=== PATIENT | female | born 1955 | race Caucasian/White ===

== ENCOUNTER → 2018-11-11 | Outpatient (CLI) | payer OTHER | END | disposition home or self-care (01) | LOC: CFH 09:38 | PROVIDERS: ATTEND Physician Assistant | DX: I31.3 Pericardial effusion (noninflammatory) (principal); I01.8 Other acute rheumatic heart disease; I50.30 Unspecified diastolic (congestive) heart failure; E78.5 Hyperlipidemia, unspecified; Z87.891 Personal history of nicotine dependence | CPT/HCPCS: 93306 ==

== ENCOUNTER → 2019-01-24 | Outpatient (CLI) | payer OTHER | END | disposition home or self-care (01) | LOC: CFH 09:16 | PROVIDERS: ATTEND Internal Medicine | DX: Z12.31 Encounter for screening mammogram for malignant neoplasm of breast (principal) | CPT/HCPCS: 77063; 77067 ==

== ENCOUNTER 2020-08-29 09:50 | Emergency (ER) | payer OTHER ==
[~2020-08-29] VITALS: Ht 167.6 cm; Wt 86.5 kg
--- NOTE | 2020-08-29 10:17 | NUR ---
WOKE AT 0300 W/ RT EYE PAIN. "FEELS LIKE I HAVE GLASS IN THERE." RT EYE AREA REDDENED, WATERING. STATES SHE WAS STACKING WOOD YESTERDAY, FELT LIKE SHE GOT A BIT OF SAWDUST IN HER EYE, THEN SX RESOLVED. HX: CATARACT SURGERY.
--- NOTE | 2020-08-29 10:22 | NUR ---
FRANCINE CORDOVA AT BS FOR EXAM.
--- NOTE | 2020-08-29 10:25 | NUR ---
VO FROM FRANCINE CORDOVA: NESHA OPTHALMIC
--- NOTE | 2020-08-29 10:30 | NUR ---
NESHA GIVEN TO FARNCINE CORDOVA
--- NOTE | 2020-08-29 10:45 | NUR ---
DR CONTEH AT BS
[2020-08-29 11:00] VITALS: BP 139/85
[2020-08-29] MEDS ORDERED: FLUORESCEIN/BENOXINATE 5 ML DROPS OP ONE (11:00)
--- NOTE | 2020-08-29 11:18 | NUR ---
PT REQUESTING ADDITIONAL DROPS FOR EYE PAIN. FRANCINE RIOS CONSULTED. VO: [place] 2 DROPS RT EYE.
--- NOTE | 2020-08-29 11:20 | NUR ---
[place]TA[place] TWO DROPS INSTILLED TO RT EYE.
[2020-08-29] MEDS ORDERED: HYPERLIPIDEMIA (11:22)
[2020-08-29] MEDS ORDERED: LOSARTAN-HCTZ (11:22)
[2020-08-29] MEDS ORDERED: HTN (11:22)
== END 2020-08-29 11:28 | disposition home or self-care (01) ==
LOC: ED 10:44
DX: H57.11 Ocular pain, right eye (principal)
CPT/HCPCS: 99283

== ENCOUNTER 2020-11-26 09:44 | Outpatient (CLI) | payer OTHER ==
[~2020-11-26 09:44] MED LIST: HTN; HYPERLIPIDEMIA; LOSARTAN-HCTZ
== END 2020-11-26 23:59 | disposition home or self-care (01) ==
LOC: CFH 09:44
PROVIDERS: ATTEND Internal Medicine
DX: Z12.31 Encounter for screening mammogram for malignant neoplasm of breast (principal); R92.1 Mammographic calcification found on diagnostic imaging of breast
CPT/HCPCS: 77063; 77067